=== PATIENT | male | born 1960 | race Caucasian/White ===

== ENCOUNTER → 2020-09-07 | Outpatient (CLI) | payer OTHER ==
[2020-09-07 17:18] LABS: HEMOGLOBIN 14.5 gm/dl (14.0-17.5); WHITE BLOOD COUNT 15.4 K/UL (4.5-11.0)
[2020-09-07 17:36] LABS: BUN/CREATININE RATIO 22 (0-10)
== END ==
LOC: LAB 16:52
PROVIDERS: Internal Medicine
DX: M06.9 Rheumatoid arthritis, unspecified (principal); Z79.899 Other long term (current) drug therapy
CPT/HCPCS: 80053; 85025; 85652; 86140